=== PATIENT | female | born 1955 | race Caucasian/White ===

== ENCOUNTER 2017-06-20 10:41 | Day surgery (SDC) | payer BC ==
[2017-06-12 12:40] VITALS: BMI 22.6
[2017-06-20] MEDS ORDERED: SODIUM CHLORIDE 0.9% 500 ML IV ONE (11:36)
[2017-06-20 11:39] VITALS: RESP 16; TEMP 97.9
[2017-06-20] MEDS ORDERED: fentaNYL (PF) 50 MCG/ML 2 ML AMP ONE (11:48)
[2017-06-20] MEDS ORDERED: MIDAZOLAM 2 MG/2 ML VIAL ONE (11:48)
[2017-06-20] MEDS ORDERED: BENZOCAINE SPRAY 1 CAN MUCOUS MEM ONE (12:05)
[2017-06-20] MEDS ORDERED: fentaNYL (PF) 50 MCG/ML 2 ML AMP IV ONE ×2 (12:09→12:10)
[2017-06-20] MEDS ORDERED: MIDAZOLAM 2 MG/2 ML VIAL IV ONE ×2 (12:09→12:10)
[2017-06-20] MEDS ORDERED: SODIUM CHLORIDE 0.9% 1,000 ML IV SCH (12:45)
--- NOTE | 2017-06-20 12:53 | P.TEE ---
Indications for Procedure(s): Mitral valve prolapse and mitral regurgitation Date of Procedure: 06/20/17 Preoperative Diagnosis: Mitral valve prolapse and mitral regurgitation Postoperative Diagnosis: Moderate to severe mitral regurgitation and a prolapse involving both mitral leaflets Description of Procedure(s): INDICATION: Assessment of mitral regurgitation and mitral valve prolapse CONSENT:. Informed consent was obtained from the patient PROCEDURE:. Patient was brought to the lab in a fasting state. She was prepped and draped in the usual fashion. Patient was given IV Versed 2.5 mg, and also fentanyl 50 mg for conscious sedation. A lubricated Omni probe was introduced in the oropharynx and was advanced into the esophagus and stomach. Multiple views were obtained. Color and pulse wave Doppler was performed. Saline contrast bubble injection was also performed. Patient tolerated the procedure well. No immediate complications FINDINGS:. The mitral valve shows thickening and myxoid changes with prolapse of the both leaflets. There is a multiple regurgitant jets. The PISA was measured as 0.7 to 0.88. There is no reversal of flow in the pulmonary vein on the left side. No clot in the left atrial appendage. No evidence of PFO. This injection of saline contrast bubble did not show any crossing of bubbles across the septum. Left ankle function is preserved. Aortic valve appeared within normal. Tricuspid valve appeared normal with mild regurgitation. No plaques were noted in the aorta IMPRESSION: #1. Mitral valve prolapse involving the both leaflets, posterior more than the anterior. About 3+ mitral regurgitation. No evidence of any flailing or evidence of ruptured chordae tendineae. #2. Mild tricuspid regurgitation. #3. No PFO #4. No clot in left atrial appendage. #5. Left ventricular function is preserved. #6. No plaque in the aorta. PLAN :Continue maximal medical therapy. Possible mitral valve repair
[2017-06-20 14:18] VITALS: BP 131/77; PULSE 88
== END 2017-06-20 13:54 | disposition home or self-care (01) ==
LOC: CATHCVL 10:41
PROVIDERS: ATTEND Internal Medicine Cardiovascular Disease
DX: I08.1 Rheumatic disorders of both mitral and tricuspid valves (principal); Z88.2 Allergy status to sulfonamides; Z82.49 Family history of ischemic heart disease and other diseases of the circulatory system
CPT/HCPCS: 93312; 93320; 93325; J2250; J3010

== ENCOUNTER 2017-09-02 09:50 | Day surgery (SDC) | payer BC ==
[2017-08-27 15:21] VITALS: BMI 22.1
[~2017-09-02 09:50] MED LIST: ALPRAZolam 0.25 MG TAB PO PRN; ALPRAZolam 0.5 MG TAB PO PRN; ATORVASTATIN 80 MG TAB PO STA; NITROGLYCERIN SL TABS 0.4 MG TAB SUBLINGUAL PRN; SODIUM CHLORIDE 0.9% 1,000 ML in EMPTY BAG 1 BAG IV ONE
[2017-09-02] MEDS ORDERED: MIDAZOLAM 2 MG/2 ML VIAL ONE (11:29)
[2017-09-02] MEDS ORDERED: LIDOCAINE 2% INJ 20 MG/ML (20 ML MDV) ONE (11:30)
[2017-09-02] MEDS ORDERED: fentaNYL (PF) 50 MCG/ML 2 ML AMP ONE (11:50)
[2017-09-02] MEDS ORDERED: MIDAZOLAM 2 MG/2 ML VIAL IVP ONE (11:51)
[2017-09-02] MEDS ORDERED: LIDOCAINE 2% INJ 20 MG/ML SQ ONE (11:53)
[2017-09-02] MEDS ORDERED: fentaNYL (PF) 50 MCG/ML 2 ML AMP IVP ONE (11:53)
[2017-09-02] MEDS ORDERED: IOPAMIDOL-370 125ML BTL INJ ONE (12:16)
[2017-09-02] MEDS ORDERED: RX INFO: IV CONTRAST WAS GIVEN 1 EACH MISC MISCELLANE PRN (12:28)
[2017-09-02] MEDS ORDERED: SODIUM CHLORIDE 0.9% 1,000 ML IV SCH (12:30)
--- NOTE | 2017-09-02 12:36 | P.PCN ---
Date of Procedure: 09/02/17 Preoperative Diagnosis: Mitral valve prolapse and mitral regurgitation Postoperative Diagnosis: Mitral valve prolapse and mitral regurgitation Procedure(s) Performed: Left heart catheterization with left ventriculography. Attempted right heart cath Description of Procedure: HISTORY: This is a 61-year-old female with history of mitral valve prolapse and moderate to severe mitral regurgitation being constricted for mitral valve repair. Patient is advised to have left heart catheterization to rule out coronary.disease. CONSENT:I have discussed the risks, benefits and alternative therapies for the above-mentioned procedure and for both sedation/analgesia as well as necessary blood product administration, if indicated, as they pertain to this patient. The patient has indicated understanding and acceptance of the risks and procedures discussed. PROCEDURE: Patient was brought to the lab in a fasting state. Patient was given some IV sedation. The right groin is infiltrated with lidocaine and right femoral artery was entered using Seldinger technique. A 6-[place]ian catheter was left in place and selective coronary arteriography and left ventriculography was performed. Attempts were madeTo get into the right femoral Vein which was unsuccessful. Right heart catheterization was abandoned. The Patient tolerated the procedure well. Femoral angiogram was performed and Angio -Seal was applied for hemostasis. No immediate complications were noted and patient was transferred to [facility] in a stable condition Conscious Sedation: Versed 1mg Fentanyl 25 g Duration 34minutes HEMODYNAMICS: The aortic pressure is 130/70. Left ankle end-diastolic pressure is about 5-10. There was no gradient across the aortic valve. SELECTIVE CORONARY ARTERIOGRAPHY: LEFT MAIN: Normal length and patent. THE LEFT ANTERIOR DESCENDING CORONARY ARTERY:This is a good caliber vessel giving rise to the diagonal and septal branches. The LAD and branches are free of occlusive disease THE LEFT CIRCUMFLEX AND IS CORONARY ARTERY: This is a good caliber vessel and codominant, giving rise good-sized OM branch. The circumflex and branches are free of occlusive disease THE RIGHT CORONARY ARTERY: This is a moderate caliber vessel and codominant, giving rise to good-sized PDA. The right coronary artery and branches are free of occlusive disease LEFT VENTRICULOGRAPHY:This revealed normal-sized Cardec silhouette with good systolic function. There is evidence of mitral valve prolapse. No Sigmund mitral regurg could be seen on the study FINAL IMPRESSION:Normal coronary arteries. Mitral valve prolapse. Moderate to severe mitral regurgitation by LUKE examination PLAN: Continue current medical therapy. Follow up at [facility] for possible mitral valve repair PROGNOSIS: Fair
[2017-09-02 12:48] VITALS: RESP 16
[2017-09-02 19:27] VITALS: BP 100/61; PULSE 79; TEMP 98.7
== END 2017-09-02 20:27 | disposition home or self-care (01) ==
LOC: CATHCVL 09:50 → 3OBS 12:35 → CATHCVL 20:27
PROVIDERS: ATTEND Internal Medicine Cardiovascular Disease
DX: I34.1 Nonrheumatic mitral (valve) prolapse (principal); I34.0 Nonrheumatic mitral (valve) insufficiency; Z88.2 Allergy status to sulfonamides; Z79.82 Long term (current) use of aspirin
CPT/HCPCS: 93458; C1894 ×2; C1769; J2001; J2250; J3010; Q9967